=== PATIENT | male | born 1985 | race Hispanic/Latino ===

== ENCOUNTER 2017-04-06 09:37 | Observation (INO) | payer OTHER ==
[~2017-04-06] VITALS: Ht 157.5 cm; Wt 66.8 kg
[2017-04-06] VITALS (10 sets, daily range): BP systolic 100–115; BP diastolic 60–74; PULSE 54–87; RESP 10–17; O2SAT 97–100
--- NOTE | 2017-04-06 10:01 | ED.REPORT ---
HPI-Abd Pain M Under 40 Date of Service Apr 06, 2017 ED Provider: Ras Cano MD Patient is a 31 year old male who presents to the ED complaining of right lower quadrant abdominal pain onset 0900 yesterday morning. Associated symptoms include decreased appetite and nausea. He denies fever, vomiting or urinary problems. The patient reports that he last ate at 7am this morning. Patient reports that his pain has been getting progressively worse. He tried taking Motrin yesterday but had no relief of symptoms. Mixte[place] speaker, present and interperets. Nursing Notes Chief Complaint: Male Abdominal Pain Nursing Notes Reviewed: Yes Allergies: Coded Allergies: No Known Allergies (Unverified , 04/06/17) General Time Seen by MD: 10:00 Chief Complaint Abdominal pain Hx Obtained From: Patient Arrived By: Walk-in Sudden in Onset?: Yes Onset Occurred: Yesterday Symptom Duration: Since onset Location: : RLQ Quality: Painful Severity: Current: Moderate Recent Healthcare: No recent hospitalization Similar Sx Previous: No Past Medical History Past Medical History none reported Smoking History Unknown if Ever Smoker Social History Other Social History: Good social support Ambulatory Status Independent Review of Systems Constitutional: Denies: Chills, Fever Respiratory: Denies: Non-productive cough, Shortness of breath GI: Reports: Abdominal pain, Anorexia, Nausea, Denies: Vomiting Male: Denies Dysuria, Denies Flank pain, Denies Incontinence Complete sys rev & neg: except as marked. Skin: Denies Itching, Denies Rash Physical Exam Initial Vital Signs Vital Signs (First) Date Time Temp Pulse Resp B/P Pulse Ox O2 Delivery O2 Flow Rate FiO2 04/06/17 09:51 36.5 72 14 115/74 98 Room Air Initial VS: Reviewed General/Constitutional: Awake, Alert Respiratory / Chest: Atraumatic, Breath sounds NL, Breath sounds = bilat, No respiratory distress Cardiovascular: Heart rate NL, Regular rhythm Heart Sounds / Murmur: Positive: Systolic murmur present.. (II/ heard at the upper right sternal border) Abdomen: Atraumatic, Soft, BS normoactive right lower quadrant tenderness with guarding Back: Atraumatic, No CVA tenderness Head / Eyes: Atraumatic, Normocephalic, PERRL, EOMI Neurologic: Oriented X3, Speech NL Skin: Atraumatic, Color NL, No rash, Warm, Dry Psychiatric: Affect NL, Mood NL Interpretation & Diagnostics Lab Results Interpretation Result Diagram: 04/06/17 1010 04/06/17 1010 Test 04/06/17 10:10 04/06/17 11:24 White Blood Count 15.2th/mm3 (3.8-10.1) Red Blood Count 4.90mil/mm3 (4.40-5.80) Hemoglobin 14.7g/dL (13.8-17.2) Hematocrit 42.3% (41.0-50.0) Mean Corpuscular Volume 86.3fL (81-100) Mean Corpuscular Hemoglobin 30.0pg (27.0-35.0) Mean Corpuscular Hemoglobin Concent 34.8% (32.0-37.0) Red Cell Distribution Width 12.9% (12.3-15.4) Platelet Count 326bil/L (150-400) Neutrophils (%) (Auto) 79.5% (40-74) Lymphocytes (%) (Auto) 12.5% (14-46) Monocytes (%) (Auto) 7.3% (4-12) Eosinophils (%) (Auto) 0.3% (0-5) Basophils (%) (Auto) 0.1% (0-3) Sodium Level 138mEq/L (134-144) Potassium Level 3.5mEq/L (3.5-5.2) Chloride Level 101mEq/L (97-108) Carbon Dioxide Level 22mmol/L (18-29) Blood Urea Nitrogen 12mg/dL (6-20) Creatinine 0.51mg/dL (0.76-1.27) Estimat Glomerular Filtration Rate 199mL/min (>59) Glucose Level 108mg/dL (60-99) Lactic Acid Level 0.9mmol/L (0.4-2.0) Calcium Level 8.6mg/dL (8.5-10.1) Magnesium Level 2.1mg/dL (1.6-2.6) Total Bilirubin 0.8mg/dL (0.0-1.2) Aspartate Amino Transf (AST/SGOT) 27U/L (0-50) Alanine Aminotransferase (ALT/SGPT) 43U/L (0-44) Alkaline Phosphatase 93U/L (25-150) Total Protein 7.8g/dL (6.4-8.4) Albumin 4.2g/dL (3.4-5.0) Lipase 26U/L (13-60) Urine Color Yellow (YELLOW) Urine Appearance Clear (CLEAR,HAZY) Urine pH 6.0 (5.0-8.0) Urine Specific [place] 1.029 (1.003-1.035) Urine Protein Negativemg/dL (NEG,TRACE) Urine Glucose (UA) Negativemg/dL (NEGATIVE) Urine Ketones Negativemg/dL (NEGATIVE) Urine Occult Blood Negative (NEGATIVE) Urine Nitrite Negative (NEGATIVE) Urine Bilirubin Negative (NEGATIVE) Urine Urobilinogen Normalmg/dL (NORMAL) Urine Leukocyte Esterase Negative (NEGATIVE) Urine RBC 0-2/hpf (0-2) Urine WBC 0-5/hpf (0-5) Urine Epithelial Cells Few/hpf (NONE-MOD) Urine Crystals None seen (NONE SEEN) Urine Bacteria None/hpf (NONE-FEW) Urine Hyaline Casts None/lpf (NONE) Urine Granular Casts None seen (NONE SEEN) Urine Waxy Casts None seen (NONE SEEN) Urine Red Blood Cell Casts None seen (NONE SEEN) Urine White Blood Cell Casts None seen (NONE SEEN) Urine Mucus None seen (None Seen) Urine Trichomonas None seen (NONE SEEN) Urine Yeast None (NONE SEEN) Urinalysis Comment None Urine Culture Reflexed Not indicated CT Abd / Pelvis Interpretation IMPRESSION: 1. Findings consistent with appendicitis without evidence of perforation. 2. Mild wall thickening within the adjacent cecum is likely reactive. Dictated by: Chadwick Diop M.D. on 04/06/2017 at 11:43 Approved by: Chadwick Diop M.D. on 04/06/2017 at 11:47 ADDENDUM: Findings discussed with Dr. Cano on 04/06/17 at 11:55 AM. Dictated by: Chadwick Diop M.D. on 04/06/2017 at 11:56 Approved by: Chadwick Diop M.D. on 04/06/2017 at 11:57 Interpretation / Wet Read by: Interpret - Radiologist Re-Eval/Medical Decision Med Decision/Clinical Course Acute appendicitis by exam confirmed by imaging. Zosyn given in ED, surgery consulted. Re-Evaluation/Progress : Time of Eval: 12:02 Re-Evaluation/Progress Note: Discussed CT results and plan for admit. Patient understands and agrees to plan. All questions were addressed. Consultation : Referral / Consult Name: Kurt Luevano MD Consulted With: Surgeon Call Returned at: 11:59 [employer]: Will see patient, Agrees with eval, Agrees with plan Counseled Regarding: Diagnosis, Lab results, Need for admission Patient Discharge & Departure Primary Impression: Acute appendicitis Acute appendicitis type: unspecified acute appendicitis type Qualified Code: K35.80 - Unspecified acute appendicitis Disposition: ADMITTED TO HOSPITAL Discharge Condition All VS Reviewed: Yes Condition: Stable Scribe Attestation Portions of this note were transcribed by Margarita Branch. I, Dr. Cano personally performed the history, physical exam and medical decision-making; I reviewed and confirmed the accuracy of the information in the transcribed note. Signed by: Cristina Phillips, 04/06/17 Ras Cano MD Apr 06, 2017 10:01 Kayleigh Branch Apr 06, 2017 10:07
[2017-04-06] MEDS ORDERED: 0.9% Sodium Chloride 1,000 ML IV ONE (10:25)
[2017-04-06] MEDS ORDERED: Ondansetron 2 mg/mL 2 mL Inj IVPUSH PRN ×3 (10:25→14:15)
[2017-04-06] MEDS: HYDROmorphone 1 mg/mL Inj IVPUSH PRN ×2 (10:51→12:56)
[2017-04-06 10:52] LABS: Magnesium 2.1 mg/dL (1.6-2.6)
[2017-04-06 10:56] LABS: BASOPHILS % (AUTO) 0.1 % (0-3); EOSINOPHILS % (AUTO) 0.3 % (0-5); MONOCYTES % (AUTO) 7.3 % (4-12); Mean Corpuscular Volume 86.3 fL (81-100); NEUTROPHILS % (AUTO) 79.5 % (40-74); Platelet Count 326 bil/L (150-400)
--- NOTE | 2017-04-06 11:48 | DRSVH ---
PROCEDURE: CT ABDOMEN AND PELVIS WITH CONTRAST ([id number]) INDICATIONS: Right lower quadrant abdominal pain. TECHNIQUE: After the administration of oral and intravenous contrast, 5 mm thick sections acquired from the diap hragms to the symphysis. 5 mm thick coronal and sagittal reformats were performed. For radiation do se reduction, the following was used: automated exposure control, adjustment of mA and/or kV accordi ng to patient size. COMPARISON: None. FINDINGS: Image quality: Excellent. ABDOMEN: Lung bases: There is a calcified granuloma within the inferior right middle lobe. Heart size is nor mal. Solid organs: Liver and spleen are normal in size and enhancement. Gallbladder appears within nelson l limits without calcified gallstones. Biliary system is non-dilated. Pancreas enhances normally. No adrenal nodules. Kidneys are normal in size and enhancement, without hydronephrosis. Peritoneum and bowel: Stomach and small bowel loops are normal in caliber and wall thickness. There is mild enlargement of the appendix with wall thickening, measuring up to 9 mm with mild periappendi ceal fat stranding. There is an appendicolith at the base of the appendix. Findings are compatible with mild acute appendicitis without evidence of perforation at this time. There is mild adjacent wa ll thickening within the cecum which is likely reactive. The remainder of the colon demonstrates nor mal wall thickness and caliber. No free fluid or air. Nodes and vessels: No retroperitoneal or mesenteric adenopathy. Aorta and inferior vena cava are no rmal in caliber. Miscellaneous: No ventral hernias. PELVIS: Genitourinary: Bladder wall thickness is normal. Miscellaneous: No inguinal hernias or adenopathy. Bones: No suspicious bony lesions. No vertebral body compression fractures. IMPRESSION: 1. Findings consistent with appendicitis without evidence of perforation. 2. Mild wall thickening within the adjacent cecum is likely reactive. Dictated by: Chadwick Diop M.D. on 04/06/2017 at 11:43 Approved by: Chadwick Diop M.D. on 04/06/2017 at 11:47
[2017-04-06 11:59] LABS: APPEARANCE,URINE CLEAR (CLEAR,HAZY); COLOR,URINE YELLOW (YELLOW); OCCULT BLOOD,URINE NEGATIVE (NEGATIVE); UROBILINOGEN,URINE NORMAL (NORMAL)
[2017-04-06] MEDS ORDERED: Piperacillin-Tazo 3.375 Gm Inj 3.375 GM in Dextrose 5% Minibag Plus 50 ML IV ONE (12:05)
--- NOTE | 2017-04-06 13:18 | PCM.HPANE ---
Patient Data Date of Service: Apr 06, 2017 Surgeon Admitting Provider:Kurt Luevano MD Attending Provider:Kurt Luevano MD Primary Care Physician:Nopcp Other Provider: Reason for Visit Acute Appendicitis Ht/WT & BMI Height (Feet): 5 Height (Inches): 2 Weight (Kilograms): 66.82 Body Mass Index Allergies Coded Allergies: No Known Allergies (Unverified , 04/06/17) Past Anesthesia History Anesthesia History: Denies:: Anesthesia Reactions, Fam Anesthesia Reaction Diabetes History Hx Diabetes?: No Medications Hypertension Medication: No History History of ENT Problems?: No HEENT History: Denies:: Abnormal Airway Denture Type: None Teeth Condition: Within Normal Limits Hx of Heart Problems?: No Cardiovascular History: Denies:: Congestive Heart Failure Hypertension Hx of Respiratory Problem?: No Respiratory History: Denies:: Tuberculosis Hx Neurologic Problems?: No Hx of GI Problems?: No Hx of Problems?: No Hx Musculoskeletal Problems?: No Hx of Psycho/Social Problems?: No Hx Surgeries?: No Hx Diabetes: No Hx Alcohol Use: NoHx Substance Use: No Smoking Status: Unknown if Ever Smoker Stop/Bang JERMAIN Risk Assessment: Low Risk, <3 Yes Risk Assessment Category Category 1A: Patient has history of documented sleep apnea, and HAS NOT received any narcotic, sedative or anesthesia administration during this stay. Category 1B: Patient has history of documented sleep apnea, and HAS received any narcotic , sedative or anesthesia administration during this stay Category 2: Patient has SUSPECTED Obstructive Sleep Apnea, and HAS received any narcotic , sedative or anesthesia administration during this stay. Category 3: Patient has SUSPECTED Obstructive Sleep Apnea and HAS NOT received narcotic, sedative or anesthesia administration during this stay. Category 4: Outpatient in Procedural Areas with known sleep apnea or who screen positive for High Risk via the STOP/BANG questionnaire. Exam Exam Vital Signs Vital Signs Date Time Temp Pulse Resp B/P Pulse Ox O2 Delivery O2 Flow Rate FiO2 04/06/17 13:02 87 17 106/60 97 Room Air 04/06/17 09:51 36.5 72 14 115/74 98 Room Air General Appearance: Alert, Oriented X3, Cooperative, No Acute Distress HEENT/AIRWAY: MP 2 Lungs: Clear to Auscultation, Normal Air Movement Heart: Exam Unremarkable, Regular Rate/Rhythm, No Murmurs/Rubs/Gallops Meds/Labs/Diagnostics Admission Meds Current Medications Sodium Chloride 1,000 ml @ 0 mls/hr Q0M ONCE IV Last administered on 04/06/17 10:48; Start 04/06/17 at 10:25; Stop 04/06/17 at 10:26; Status DC Piperacillin Sod/ Tazobactam Sod/ Dextrose/Water (Zosyn 3.375 Gm Inj/D5W Minibag Plus) 50 ml @ 100 mls/hr ONCE ONCE IV Last administered on 04/06/17 13:01; Start 04/06/17 at 12:05; Stop 04/06/17 at 12:34; Status DC Labs Test 04/06/17 10:10 04/06/17 11:24 White Blood Count 15.2th/mm3 (3.8-10.1) Red Blood Count 4.90mil/mm3 (4.40-5.80) Hemoglobin 14.7g/dL (13.8-17.2) Hematocrit 42.3% (41.0-50.0) Mean Corpuscular Volume 86.3fL (81-100) Mean Corpuscular Hemoglobin 30.0pg (27.0-35.0) Mean Corpuscular Hemoglobin Concent 34.8% (32.0-37.0) Red Cell Distribution Width 12.9% (12.3-15.4) Platelet Count 326bil/L (150-400) Neutrophils (%) (Auto) 79.5% (40-74) Lymphocytes (%) (Auto) 12.5% (14-46) Monocytes (%) (Auto) 7.3% (4-12) Eosinophils (%) (Auto) 0.3% (0-5) Basophils (%) (Auto) 0.1% (0-3) Sodium Level 138mEq/L (134-144) Potassium Level 3.5mEq/L (3.5-5.2) Chloride Level 101mEq/L (97-108) Carbon Dioxide Level 22mmol/L (18-29) Blood Urea Nitrogen 12mg/dL (6-20) Creatinine 0.51mg/dL (0.76-1.27) Estimat Glomerular Filtration Rate 199mL/min (>59) Glucose Level 108mg/dL (60-99) Lactic Acid Level 0.9mmol/L (0.4-2.0) Calcium Level 8.6mg/dL (8.5-10.1) Magnesium Level 2.1mg/dL (1.6-2.6) Total Bilirubin 0.8mg/dL (0.0-1.2) Aspartate Amino Transf (AST/SGOT) 27U/L (0-50) Alanine Aminotransferase (ALT/SGPT) 43U/L (0-44) Alkaline Phosphatase 93U/L (25-150) Total Protein 7.8g/dL (6.4-8.4) Albumin 4.2g/dL (3.4-5.0) Lipase 26U/L (13-60) Urine Color Yellow (YELLOW) Urine Appearance Clear (CLEAR,HAZY) Urine pH 6.0 (5.0-8.0) Urine Specific [place] 1.029 (1.003-1.035) Urine Protein Negativemg/dL (NEG,TRACE) Urine Glucose (UA) Negativemg/dL (NEGATIVE) Urine Ketones Negativemg/dL (NEGATIVE) Urine Occult Blood Negative (NEGATIVE) Urine Nitrite Negative (NEGATIVE) Urine Bilirubin Negative (NEGATIVE) Urine Urobilinogen Normalmg/dL (NORMAL) Urine Leukocyte Esterase Negative (NEGATIVE) Urine RBC 0-2/hpf (0-2) Urine WBC 0-5/hpf (0-5) Urine Epithelial Cells Few/hpf (NONE-MOD) Urine Crystals None seen (NONE SEEN) Urine Bacteria None/hpf (NONE-FEW) Urine Hyaline Casts None/lpf (NONE) Urine Granular Casts None seen (NONE SEEN) Urine Waxy Casts None seen (NONE SEEN) Urine Red Blood Cell Casts None seen (NONE SEEN) Urine White Blood Cell Casts None seen (NONE SEEN) Urine Mucus None seen (None Seen) Urine Trichomonas None seen (NONE SEEN) Urine Yeast None (NONE SEEN) Urinalysis Comment None Urine Culture Reflexed Not indicated Plan Impression Patient chart reviewed, patient interviewed and anesthestic plan with risks, benefits, and alternatives discussed, and informed consent obtained. NPO per Anesth. Guidelines: Yes ASA Physical Status: ASA1 Normal Healthy Anesthetic Plan: GA Bene/Risks/Altern/Consents: Yes HP Complete Prior to Induction: Yes Sotero Sosa MD Apr 06, 2017 13:18
[2017-04-06] MEDS ORDERED: Lactated Ringer's 500 ML IV PRN (13:23)
[2017-04-06] MEDS ORDERED: Lactated Ringer's 1,000 ML IV ONE (13:23)
[2017-04-06] MEDS ORDERED: Lactated Ringer's 1,000 ML IV SCH (13:23)
[2017-04-06] MEDS ORDERED: Dexamethasone 4 mg/mL Inj IVPUSH PRN (13:25)
[2017-04-06] MEDS ORDERED: Atropine 0.4 mg/mL Inj IVPUSH PRN (13:25)
[2017-04-06] MEDS ORDERED: Bupivacaine-MPF 0.5% 30 mL Inj INFILTRATE ONE (13:25)
[2017-04-06] MEDS ORDERED: MetoCLOpramide 5 mg/mL 2 mL Inj IVPUSH PRN ×2 (13:25→14:15)
[2017-04-06] MEDS ORDERED: fentaNYL-PF 50 mCg/mL 2 mL Inj IVPUSH PRN (13:25)
[2017-04-06] MEDS ORDERED: Phenylephrine 10,000 mCg/mL Inj IVPUSH PRN (13:25)
[2017-04-06] MEDS ORDERED: EPHEDrine Sulfate 50 mg/mL Inj IVPUSH PRN (13:25)
[2017-04-06] MEDS ORDERED: HYDROmorphone 1 mg/mL Inj IVPUSH PRN (13:25)
[2017-04-06] MEDS ORDERED: Sodium Chloride LOK Flush 10 mL Syringe IVFLUSH PRN (14:15)
--- NOTE | 2017-04-06 14:19 | PCM.SURGOP ---
Surgical Operative Report Date of Service: Apr 06, 2017 Pre Operative Diagnosis Acute appendicitis Post Operative Diagnosis Acute suppurative appendicitis, nonperforated Procedure: Laparoscopic appendectomy Surgeon and Mobile Application Developer: Surgeon: Kurt Luevano MD Assistants: William Echavarria PA-C Indication for Procedure 31-year-old man who presented with 24 hours of right lower quadrant abdominal pain. He had a white blood cell counts of 15. He had a CT scan which showed a distended appendix with appendicolith and periappendiceal fat stranding. After discussion of risks and benefits, he agreed to proceed with laparoscopic appendectomy. Findings: There was suppurative appendicitis, but the appendix was not perforated. The cecum was normal. Procedure Details After smooth induction of general anesthesia, the patient was placed in the supine position with the left arm tucked. The abdomen was prepped and draped in wide sterile fashion. A procedural pause was performed according to the SCOAP checklist, and all were found to be in agreement. A curvilinear infraumbilical incision was made. Dissection was carried down with electrocautery until the midline fascia was incised vertically and the peritoneal cavity was entered without difficulty. Pneumoperitoneum was established. Two additional ports were placed under visualization. A 5 mm port was placed in the midline above the symphysis pubis, and a 12 mm port in the left lower quadrant, lateral to the inferior epigastric vessels. The patient was placed head down with the right side up. The small bowel was retracted. The greater omentum was retracted. The appendix was visualized, which had some suppurative exudate, but no evidence of perforation. It was bluntly mobilized and retracted. A window was created at the base of the appendix in the mesoappendix. The appendiceal stump was then divided using an Endo NAVEEN stapler with a 45 mm blue load. The mesoappendix was divided with a vascular load. The appendix was placed into an Endo Catch bag. The right lower quadrant was irrigated and suctioned. The appendiceal stump was intact and the mesoappendix was hemostatic. The appendix was removed and passed off the field for permanent pathology. The 12 mm port was removed. The fascia of the 12 mm port site was closed using an inlet closure device with an 0 Vicryl suture. The remaining ports were removed under visualization and pneumoperitoneum was released. The skin incisions were closed using running 4- 0 Monocryl subcutaneous stitches. Steri-Strips and sterile dressings were applied. At the end of the case all needle and sponge counts were correct 2. The patient was awakened from anesthesia without difficulty, and taken to the recovery room in satisfactory condition, having tolerated the procedure well. Complications There were no periprocedural complications identified. Surgical Specimen Removed: Yes Specimen sent to Pathology: Yes Surgical Specimen description: Appendix Anesthetic Plan: GA Grafts, Implants: None Output, Estimated Blood Loss: 10 Blood Administration during ledesma: No Drains: None Catheters: None Kurt Luevano MD Apr 06, 2017 14:19
[2017-04-06] MEDS ORDERED: POLY17PO6 PO (14:33)
[2017-04-06] MEDS ORDERED: OXYC5TAB72 PO (14:33)
--- NOTE | 2017-04-06 14:42 | PCM.ANEP1 ---
Post Anesthesia PACU Phase 1 Assessment Date of Service: Apr 06, 2017 Vital Signs 36.4 110/72 67 10 98% RA Anesthetic Administered: GA Level of Alertness: Awake, talking [place] ROSA's with Equal Strength: Yes Pain: No Pain Scale Score: 0 Nausea or Vomiting: No CV Function & Hydration Stable: Yes Airway Device: Oxygen Delivery: Room Air Lungs: Clear to Auscultation, Normal Air Movement PACU Phase 2 Assessment Complications: No Follow up Care: N/A Patient Instructions Provided: N/A Sotero Sosa MD Apr 06, 2017 14:42
--- NOTE | 2017-04-06 14:49 | HP ---
[address] [address] HISTORY AND PHYSICAL PATIENT: PATRICIO DAVIDSON : 1985 MR#: [id number] ADMIT: 04/06/2017 JOB ID: [id number] DATE OF SERVICE: 04/06/2017 CHIEF COMPLAINT: Abdominal pain. HISTORY OF PRESENT ILLNESS: The patient is a 31-year-old man who presented to the emergency department early this morning with acute onset of abdominal pain that began yesterday morning. The pain is localized in his right lower quadrant. He has had decreased appetite and some nausea but no vomiting. He denies fevers or chills. He has not had any urinary symptoms. He denies diarrhea or blood in the stool. Today, he had a CT scan of the abdomen and pelvis which showed a dilated appendix to 9 mm with an appendicolith at the base with some periappendiceal fat stranding, consistent with acute appendicitis. There was also some mild wall thickening of the adjacent cecum, thought to be reactive. There was no free fluid or free air. PAST MEDICAL HISTORY: None. PAST SURGICAL HISTORY: None. MEDICATIONS: None. ALLERGIES: No known drug allergies. SOCIAL HISTORY: He is a nonsmoker. Does not drink alcohol, denies illicit drug use. He works as a nursery rn. FAMILY HISTORY: No family history of inflammatory bowel disease. REVIEW OF SYSTEMS: A 10-point review of systems is negative except as described in history of present illness. No history of unplanned weight loss. PHYSICAL EXAMINATION: Body mass index 26.9, temperature 36.5, pulse 72, blood pressure 115/74, saturation 98% on room air. General: He is resting in bed in no acute distress. HEENT: Sclerae are anicteric. Mucous membranes are moist. Neck: No lymphadenopathy. Chest: Clear to auscultation bilaterally. Heart: Regular rate and rhythm. No murmurs. Abdomen is soft, nondistended. He has focal tenderness in the right lower quadrant with mild involuntary guarding. There are no palpable masses. There are no hernias. Extremities: No edema. Neuro: No deficits. Psych: Affect is appropriate. LABORATORIES: White count is 15.2, hematocrit 42.3, platelets 326. Creatinine 0.51, glucose 108. Albumin 4.2. Urinalysis is negative. IMAGING: As described in history of present illness. ASSESSMENT/PLAN: A 31-year-old man with acute appendicitis. Pathophysiology of appendicitis was discussed. Recommendation is to go to surgery today for laparoscopic appendectomy. Technical aspects of surgery were discussed. Risks of surgery were discussed, including, but not limited to, bleeding, infection, injury to other structures, conversion to open surgery. Informed consent was obtained. He will be given a single dose of broad-spectrum antibiotics in the emergency department. Decision about additional antibiotics will depend on findings at the time of surgery.
--- NOTE | 2017-04-06 20:07 | NUR ---
Post op/admit Patient arrives from recovery room s/p appendectomy. Patient was fairly drowsy from surgery when arrived but was able to ambulated from gurney to bed with assistance. 3 lap sites noted to abd patient denies pain when asked. at bedside who is translating for patient .
--- NOTE | 2017-04-06 22:26 | NUR ---
Discharge Pt DC'd home with at 2054 and left with all belongings. VSS. IV DC'd intact. Educated Pt and on care notes and medications. Pt speaks [place] and speaks this as well, along with [place] and Italian. able to translate to pt. Both and pt verbalized understanding of care notes. Pt able to walk independently, steady on feet. Pt tolerating general diet free from nausea. Voiding without issues. Pt reporting pain minimal 4/10 and did take 5mg of Oxycodone prior to DC, since it will not be available at home. Pt has prescriptions, but understood that most local pharmacies are closed.
[2017-04-06] MEDS ORDERED: Propofol 10,000 mCg/mL 20 mL Inj ONE (22:35)
[2017-04-06] MEDS ORDERED: Ondansetron 2 mg/mL 2 mL Inj ONE (22:35)
[2017-04-06] MEDS ORDERED: fentaNYL-PF 50 mCg/mL 2 mL Inj ONE (22:35)
[2017-04-06] MEDS ORDERED: Neostigmine 1 mg/mL 10 mL Inj ONE (22:35)
[2017-04-06] MEDS ORDERED: Dexamethasone 4 mg/mL Inj ONE (22:35)
[2017-04-06] MEDS ORDERED: Glycopyrrolate 0.2 MG/ML 1mL Inj ONE (22:35)
[2017-04-06] MEDS ORDERED: Rocuronium 10 mg/mL 5 mL Inj ONE (22:35)
[2017-04-07] MEDS ORDERED: Polyethylene Glycol (PEG) 17 Gm Powder PO SCH (08:30)
--- NOTE | 2017-04-10 10:54 | PCM.DC.SUR ---
Discharge Summary Date of Service: Date of Hospital Admission: Apr 06, 2017 at 13:15 Date of Operation(s): 04/06/2017 Date of Discharge: 04/06/2017 Diagnosis at Time of Discharge Acute suppurative appendicitis Problems: Operation Laparoscopic appendectomy Brief History and Physical: The patient is a 31-year-old man who presented with 24 hours of right lower quadrant abdominal pain. He had a white blood cell counts of 15. He had a CT scan which showed a distended appendix with appendicolith and periappendiceal fat stranding. Consultants: None Hospital Course: The patient was admitted and underwent the above-mentioned operation without complication. He was stable for discharge later on his operative day. Pathology: Pending Disposition: The patient was discharged to home with his several hours following his operation. At the time of discharge all of his incisions were dry and intact. Follow-up Plan: He will follow-up in the surgical PA clinic in 2 weeks. Polyethylene Glycol 3350 (Miralax) 17 Gm Powd.pack 17 GM PO DAILY oxyCODONE (oxyCODONE) 5 Mg Tablet 5-10 MG PO Q4H PRN PRN For Pain William Echavarria PA-C Apr 10, 2017 10:53
--- NOTE | 2017-04-10 13:41 | PATH ---
SURGICAL PATHOLOGY Attending Physician:Héctor Talley CASE STATUS: Signed Out PATIENT NAME: PATRICIO DAVIDSON PID: [id number] : 1985 DATE COLLECTED:04/06/2017 00:00 SPECIMEN: Appendix CLINICAL HISTORY: ACUTE APPENDICITIS, EXCISION 1). APPENDIX FINAL DIAGNOSIS: 1.APPENDIX, APPENDECTOMY: ACUTE APPENDICITIS WITH SEROSITIS. ICD10 K35.80 GROSS DESCRIPTION: The specimen is received in one formalin filled container labeled with the patient's name, sublabeled "appendix" and consists of one cylinder of bacon appendix measuring 6.0 x 0.6 x 0.6 CM. This also surface is light bacon, smooth and glistening. There is a large amount of fatty tissue. Sectioning reveals a wall to be thickened to approximately 0.2-0.3 CM. The lumen contains a bacon-brown solid to semisolid material. Rep. sections including the tip (sectioned longitudinally), proximal margin (inked blue), and random cross sections are submitted in one cassette. 04/08/2017DC MICRO DESCRIPTION: See diagnosis. ICD-9 CODES: CPT CODES: 1: 37992 Electronically Signed Out Jonathan Montana MD [facility] [address], [place] [address] Technical component performed at [facility], [facility] [address], [place], [address]
== END 2017-04-06 22:36 | disposition home or self-care (01) ==
LOC: SED 09:37 → OSC 13:15
PROVIDERS: ADMIT Student in an Organized Health Care Education/Training Program; ATTEND Student in an Organized Health Care Education/Training Program
DX: K35.80 Unspecified acute appendicitis (principal)